=== PATIENT | female | born 1940 | race Caucasian/White ===

== ENCOUNTER 2017-10-01 20:22 | Emergency (ER) | payer MEDICARE, OTHER ==
[~2017-10-01] VITALS: Ht 170.2 cm; Wt 61.7 kg
[2017-10-01 20:29] VITALS: BP 146/78
[2017-10-01] MEDS ORDERED: TENORMIN25 MG (20:34)
[2017-10-01] MEDS ORDERED: NORVASC10 MG (20:34)
[2017-10-01] MEDS ORDERED: VYTORIN 10-201 EACH (20:35)
[2017-10-01] MEDS ORDERED: ULTRAM 50MG TAB50 MG PO (20:41)
[2017-10-01] MEDS ORDERED: ATIVAN1 MG PO (20:41)
== END 2017-10-01 20:49 | disposition home or self-care (01) ==
LOC: M.ERS 20:22
DX: M43.6 Torticollis (principal); Z88.0 Allergy status to penicillin; F41.9 Anxiety disorder, unspecified; Z90.710 Acquired absence of both cervix and uterus; Z96.643 Presence of artificial hip joint, bilateral; Z90.49 Acquired absence of other specified parts of digestive tract

== ENCOUNTER → 2018-03-10 | Outpatient (CLI) | payer MEDICARE, OTHER ==
[~2018-03-10] MED LIST: ATIVAN1 MG PO; NORVASC10 MG; TENORMIN25 MG; ULTRAM 50MG TAB50 MG PO; VYTORIN 10-201 EACH
== END ==
LOC: M.RAD 08:34
DX: Z12.31 Encounter for screening mammogram for malignant neoplasm of breast (principal)

== ENCOUNTER → 2019-03-26 | Outpatient (CLI) | payer OTHER | LOC: M.RAD 09:04 | DX: Z12.31 Encounter for screening mammogram for malignant neoplasm of breast (principal) ==

== ENCOUNTER → 2020-04-28 | Outpatient (CLI) | payer OTHER | LOC: M.RAD 08:22 | PROVIDERS: ATTEND Family Medicine | DX: Z12.31 Encounter for screening mammogram for malignant neoplasm of breast (principal) ==

== ENCOUNTER → 2021-05-01 | Outpatient (CLI) | payer BC | LOC: M.RAD 08:59 | PROVIDERS: ATTEND Family Medicine | DX: Z12.31 Encounter for screening mammogram for malignant neoplasm of breast (principal) ==